=== PATIENT | female | born 1945 | race Two or more races ===

== ENCOUNTER 2017-10-22 11:55 | Emergency (ER) | payer OTHER ==
[2017-10-22 12:16] VITALS: BP 159/84; PULSE 71; TEMP 99; BMI 35.4
--- NOTE | 2017-10-22 13:00 | PDOC ---
History of Present Illness - General Chief Complaint: Injury Stated Complaint: FINGER INJURY - History of Present Illness Initial Comments: 72-year-old female presents for evaluation of left fifth finger pain after closing her finger in the door at her house. She points to the distal aspect of the left fifth finger as the area of her discomfort. 10/22/17 12:54 Past History - Past Medical History Allergies/Adverse Reactions: Allergies Allergy/AdvReac Type Severity Reaction Status Date / Time No Known Allergies Allergy Verified 10/22/17 12:16 Home Medications: Ambulatory Orders Amlodipine 10/Benazepril 20 [Lotrel (Nf)] 1 tab PO DAILY 01/16/13 Hydralazine HCl 100 mg PO DAILY 01/16/13 COPD: No Diabetes: Yes HTN: Yes - Suicide/Smoking/Psychosocial Hx Smoking Status: No Smoking History: Never smoked Have you smoked in the past 12 months: No Number of Cigarettes Smoked Daily: 0 Information on smoking cessation initiated: No Hx Alcohol Use: No Drug/Substance Use Hx: No Substance Use Type: None Review of Systems - Review of Systems Musculoskeletal: Yes: See HPI All Other Systems: Reviewed and Negative *Physical Exam - Vital Signs Last Vital Signs Temp Pulse Resp BP Pulse Ox 99.0 F 71 17 159/84 99 10/22/17 12:13 10/22/17 12:13 10/22/17 12:13 10/22/17 12:13 10/22/17 12:13 - Physical Exam Comments: There is swelling at the distal aspect of the left fifth finger on the skin surrounding the distal phalanx. FDS and FDP work independently. She has no gross sensorimotor deficits she's neurovascularly intact there is associated tenderness to the area 10/22/17 12:55 ED Treatment Course - RADIOLOGY Radiology Studies Ordered: Category Date Time Status FINGER(S) LEFT [RAD] Stat Radiology 10/22/17 12:53 Ordered Medical Decision Making - Medical Decision Making Is a longitudinal fracture of the distal phalanx of the left fifth finger. I'll splint for protection have her follow-up with hand surgery. 10/22/17 13:28 *DC/Admit/Observation/Transfer Diagnosis at time of Disposition: Fracture, finger, distal phalanx - Discharge Dispostion Disposition: HOME Condition at time of disposition: Stable Decision to Admit order: No - Referrals Referrals: Vidal Lozoya MD [Staff Physician] - - Patient Instructions Additional Instructions: por favor regrese a la errol de emergencias si los sntomas empeoran o no se resuelven. l puede mantener la frula para mayor comodidad mientras est activo. No necesita dormir en la frula. Seguimiento con ciruga de mano en 1-2 walsh para mayor evaluacin y opciones de tratamiento. Puede gonzalo Tylenol para el dolor. Print Language: SPA - Post Discharge Activity
== END 2017-10-22 13:38 | disposition home or self-care (01) ==
LOC: JERFT 11:55
PROC: 2W3KX1Z Immobilization of Left Finger using Splint (ICD-10-PCS; principal; 2017-10-22)
DX: S62.667A Nondisplaced fracture of distal phalanx of left little finger, initial encounter for closed fracture (principal); W23.0XXA Caught, crushed, jammed, or pinched between moving objects, initial encounter; Y93.89 Activity, other specified; Y92.018 Other place in single-family (private) house as the place of occurrence of the external cause; Y99.8 Other external cause status; I10 Essential (primary) hypertension; E11.9 Type 2 diabetes mellitus without complications
CPT/HCPCS: 29130; 73140-TC-LT-FY; 99281-25

== ENCOUNTER 2018-02-01 10:16 | Emergency (ER) | payer OTHER ==
[2018-02-01 10:50] VITALS: TEMP 98; BMI 33.3
[2018-02-01] MEDS ORDERED: amLODIPine BESYLATE 5 MG TABLET (FP) PO ONE (11:06)
[2018-02-01] MEDS ORDERED: hydrALAZINE HCL 50 MG TABLET (FP) PO ONE (11:06)
[2018-02-01] MEDS ORDERED: CHLORTHALIDONE 25 MG TABLET PO ONE (11:06)
[2018-02-01] MEDS ORDERED: hydrALAZINE HCL 25 MG TABLET (FP) ONE (11:34)
[2018-02-01] MEDS ORDERED: amLODIPine BESYLATE 5 MG TABLET (FP) ONE (11:34)
--- NOTE | 2018-02-01 12:33 | PDOC ---
History of Present Illness - General Chief Complaint: Blood Pressure Problem Stated Complaint: HYPERTENSION Time Seen by Provider: 02/01/18 10:44 History Source: Patient Exam Limitations: No Limitations - History of Present Illness Initial Comments: 02/01/18 12:28 72-year-old female with history of difficult to control hypertension sent from PCP office for evaluation of elevated blood pressure. Patient was scheduled for visit for routine blood tests, was noted to have high blood pressure so referred to the emergency department. The patient is completely asymptomatic, denying headache/vision change/speech change/nausea/vomiting/chest pain/focal deficit. Patient purposely skipped her morning blood pressure medications because she was told to past for her lab work, she continues to be a [employer]. Patient's baseline blood pressure is typically in the 180 systolic range. Past History - Past Medical History Allergies/Adverse Reactions: Allergies Allergy/AdvReac Type Severity Reaction Status Date / Time No Known Allergies Allergy Verified 10/22/17 12:16 Home Medications: Ambulatory Orders Hydralazine HCl 100 mg PO DAILY 01/16/13 ASA - 81 mg PO DAILY 02/01/18 Actos 45 mg PO DAILY 02/01/18 Amlodipine Besylate 5 mg PO DAILY 02/01/18 Chlorthalidone 25 mg PO AM 02/01/18 Metoprolol Succinate 100 mg PO DAILY 02/01/18 COPD: No Diabetes: Yes HTN: Yes - Suicide/Smoking/Psychosocial Hx Smoking Status: No Smoking History: Never smoked Have you smoked in the past 12 months: No Number of Cigarettes Smoked Daily: 0 Information on smoking cessation initiated: No Hx Alcohol Use: No Drug/Substance Use Hx: No Substance Use Type: None Review of Systems - Review of Systems Constitutional: No: Chills, Fever HEENTM: No: Recent change in vision Respiratory: No: Cough, Shortness of Breath, SOB with Exertion Cardiac (ROS): No: Chest Pain, Syncope ABD/GI: No: Nausea, Vomiting Neurological: Yes: Paresthesia (chronic diabetic foot neuropathy). No: Headache All Other Systems: Reviewed and Negative *Physical Exam - Vital Signs Last Vital Signs Temp Pulse Resp BP Pulse Ox 98.0 F 90 18 206/87 H 100 02/01/18 10:31 02/01/18 10:31 02/01/18 10:31 02/01/18 10:31 02/01/18 10:31 - Physical Exam Comments: 02/01/18 12:30 BP elevated, vitals otherwise wnl. GENERAL: The patient is awake, alert, and fully oriented, in no acute distress. HEAD: Normal with no signs of trauma. EYES: PERRL, EOMI, sclera anicteric, conjunctiva clear with no pallor. ENT: oropharynx clear without exudates. Moist mucous membranes. NECK: Normal range of motion, supple without lymphadenopathy, JVD, or masses. LUNGS: Breath sounds equal, clear to auscultation bilaterally. No wheeze/ crackles. HEART: Regular rate and rhythm, normal S1 and S2 without murmur or rub. ABDOMEN: Soft/nontender/nondistended. BS wnl. No guarding or rebound. No palpable masses. No hepatosplenomegaly. EXTREMITIES: Normal range of motion, trace b/l ankle edema. 2+ distal pulses. No cords, erythema, or tenderness. NEUROLOGICAL: Cranial nerves II through XII grossly intact. 5/5 motor x4. Normal speech, normal gait. PSYCH: Normal mood, normal affect. SKIN: Warm, Dry, no rashes or lesions noted. ED Treatment Course - Medications Given in the ED: ED Medications Discontinued Medications Generic Name Dose Route Start Last Admin Trade Name Freq PRN Reason Stop Dose Admin Amlodipine Besylate 5 mg 02/01/18 11:06 02/01/18 11:37 Norvasc - PO 02/01/18 11:07 5 mg ONCE ONE Administration Chlorthalidone 25 mg 02/01/18 11:06 02/01/18 11:39 [place]gro[place] - PO 02/01/18 11:07 25 mg ONCE ONE Administration Hydralazine HCl 100 mg 02/01/18 11:06 02/01/18 11:37 Apresoline - PO 02/01/18 11:07 100 mg ONCE ONE Administration Metoprolol Succinate 100 mg 02/01/18 11:06 02/01/18 11:37 Toprol Xl - PO 02/01/18 11:07 100 mg ONCE ONE Administration Medical Decision Making - Medical Decision Making 02/01/18 12:31 72-year-old female sent for evaluation of asymptomatic, elevated blood pressure. Patient has no red flags on history or physical exam, no evidence of end organ injury. Has difficult to control blood pressure at baseline, likely more elevated today secondary to skipping her medications this morning. 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 Alba, on . Daughter at bedside, she and patient understand return criteria *DC/Admit/Observation/Transfer Diagnosis at time of Disposition: Elevated blood pressure reading - Discharge Dispostion Disposition: HOME Condition at time of disposition: Improved - Referrals Referrals: Smita Page MD [Primary Care Provider] - - Patient Instructions Printed Discharge Instructions: DI for High Blood Pressure Additional Instructions: Activity as tolerated. Stay hydrated. Your blood pressure improved after doses of your usual medicines. Continue your medications as previously prescribed by your physician. You should follow up with Dr. Ortiz on and your primary doctor as soon as possible regarding today's emergency department visit. Return to the emergency department for any new or concerning symptoms, particularly headache or vision changes, chest pain or difficulty breathing, focal weakness, persistently elevated blood pressures. - Post Discharge Activity
[2018-02-01 12:35] VITALS: BP 177/72; PULSE 77
== END 2018-02-01 12:39 | disposition home or self-care (01) ==
LOC: JER 10:16
DX: I10 Essential (primary) hypertension (principal); E11.9 Type 2 diabetes mellitus without complications; Z79.84 Long term (current) use of oral hypoglycemic drugs
CPT/HCPCS: 99281-25

== ENCOUNTER → 2020-07-24 | Day surgery (SDC) | payer OTHER | END | disposition home or self-care (01) | LOC: JMAMMO-SUR 12:21 | PROVIDERS: ATTEND Physician Assistant | PROC: 0H9U3ZX Drainage of Left Breast, Percutaneous Approach, Diagnostic (ICD-10-PCS; principal; 2020-07-24) | DX: D05.12 Intraductal carcinoma in situ of left breast (principal) | CPT/HCPCS: 19083; 77065-TC; 87899; A4648 ==